=== PATIENT | male | born 1985 | race Caucasian/White ===

== ENCOUNTER 2016-11-29 21:00 | Emergency (ER) | payer MEDICAID ==
[~2016-11-29] VITALS: Ht 188 cm; Wt 72.6 kg
[2016-11-29 23:12] VITALS: BP 103/72
== END 2016-11-29 23:21 | disposition home or self-care (01) ==
LOC: ER 21:04
DX: M25.572 Pain in left ankle and joints of left foot (principal); F10.120 Alcohol abuse with intoxication, uncomplicated; F32.9 Major depressive disorder, single episode, unspecified; F20.9 Schizophrenia, unspecified; Z91.013 Allergy to seafood

== ENCOUNTER 2018-11-12 11:08 | Emergency (ER) | payer MEDICAID ==
[~2018-11-12] VITALS: Ht 188 cm; Wt 77.1 kg
[2018-11-12] MEDS ORDERED: cefTRIAXone SOD 1,000 MG VL IM ONE (11:30)
[2018-11-12] MEDS ORDERED: KETOROLAC TROMETH 60MG/2ML VIAL IM ONE (11:30)
[2018-11-12] MEDS ORDERED: CLINDAMYCIN 600 MG/4 ML VL IM ONE (11:30)
[2018-11-12 13:46] VITALS: BP 153/94
== END 2018-11-12 14:30 | disposition home or self-care (01) ==
LOC: EDBD 11:08 → ER 11:10
DX: L03.116 Cellulitis of left lower limb (principal); M25.572 Pain in left ankle and joints of left foot; F17.210 Nicotine dependence, cigarettes, uncomplicated; F12.90 Cannabis use, unspecified, uncomplicated; Z59.0 Homelessness; Z91.013 Allergy to seafood
CPT/HCPCS: 73610; 73630; 96372; 99283; J0696; J1885

== ENCOUNTER 2020-10-28 00:38 | Emergency (ER) | payer MEDICAID ==
[~2020-10-28] VITALS: Ht 188 cm; Wt 81.6 kg
[2020-10-28 01:06] VITALS: BP 135/36
[2020-10-28] MEDS ORDERED: KETOROLAC TROMETH 60MG/2ML VIAL IM ONE (04:15)
== END 2020-10-28 05:54 | disposition home or self-care (01) ==
LOC: ER 00:38 → EDBD 00:38 → ER 05:54
DX: B35.3 Tinea pedis (principal); L03.116 Cellulitis of left lower limb; L03.115 Cellulitis of right lower limb; F15.20 Other stimulant dependence, uncomplicated; F17.210 Nicotine dependence, cigarettes, uncomplicated; F12.10 Cannabis abuse, uncomplicated; Z59.0 Homelessness; Z91.013 Allergy to seafood
CPT/HCPCS: 96372; 99283; J1885

== ENCOUNTER 2024-11-30 11:13 | Emergency (ER) | payer MEDICAID ==
[~2024-11-30] VITALS: Ht 188 cm; Wt 90.0 kg
[2024-11-30] MEDS ORDERED: SODIUM CHLORIDE 0.9% 1,000 ML IV ONE ×2 (11:30→14:15)
[2024-11-30 11:35] VITALS: BP 131/86; PULSE 75; RESP 18; O2SAT 100
[2024-11-30 13:45] LABS: Basophils # (auto) 0 10 ^3/uL (0-0.2); Basophils % (auto) 0.5 % (0.0-2.0); Eosinophils # (auto) 0.3 10 ^3/uL (0-0.8); Eosinophils % (auto) 3.5 % (0.0-7.0); Hemoglobin 16.4 g/dL (13.5-17.5); Lymphocytes # (auto) 1.7 10 ^3/uL (0.4-5.4); Lymphocytes % (auto) 19.9 % (10.0-50.0); Mean Corpuscular Hemoglobin 31.1 pg (28.0-32.0); Mean Corpuscular Hgb Conc. 34.2 g/dL (32.0-36.0); Mean Corpuscular Volume 91.1 fL (80.0-100.0); Monocytes # (auto) 0.8 10 ^3/uL (0-1.3); Monocytes % (auto) 9.4 % (0.0-12.0); Neutrophils # (auto) 5.7 10 ^3/uL (1.6-8.6); Neutrophils % (auto) 66.7 % (37.0-80.0); Nucleated Red Blood Cells % 0.1 %; Platelet Count (auto) 324 10^3/uL (140-450); Red Blood Cells 5.27 10^6/uL (4.5-5.90); Red Cell Distribution Width 15.4 % (11.8-14.3); White Blood Cell 8.5 10^3/uL (4.4-10.8)
[2024-11-30 13:54] LABS: Chloride 106 mmol/L (98-107); Potassium 4.5 mmol/L (3.5-5.1); Sodium 142 mmol/L (136-145)
[2024-11-30 13:55] LABS: Anion Gap 8 (5-15); Calcium 10.3 mg/dL (8.7-10.4); Carbon Dioxide 28 mmol/L (20-31)
[2024-11-30 14:00] LABS: BUN/Creatinine Ratio 34.4 (10.0-20.0); Glucose 106 mg/dL (74-106)
[2024-11-30 14:05] LABS: Blood Urea Nitrogen 32 mg/dL (9-23)
--- NOTE | 2024-12-01 13:23 | ECG ---
[facility] Test Date: 2024-11-30 Test Time: 11:31:02 Pat Name: AMANDA ARAUJO Department: ER Room: Gender: M Plastic Welder: MICHEAL : 1985 Requested By: FRENCH COTTON Order Number: [id number] Reading MD: Jay Vela Measurements Intervals [place] Rate: 74 P: 50 [place]: 179 QRS: 56 QRSD: 109 T: 46 QT: 421 QTc: 467 Interpretive Statements Sinus rhythm RSR' in V1 or V2, probably normal variant ST elev, probable normal early repol pattern Electronically Signed On 12-02-2024 10:19:07 PST by Jay Vela Please click the below link to view image of tracing.
== END 2024-11-30 13:20 | disposition left against medical advice (07) ==
LOC: ER 11:13 → EDBD 11:13 → ER 13:20
DX: R55 Syncope and collapse (principal); R06.2 Wheezing; Z53.21 Procedure and treatment not carried out due to patient leaving prior to being seen by health care provider
CPT/HCPCS: 36415; 80048; 80320; 83880; 84484; 85025; 93005